=== PATIENT | female | born 1960 | race Caucasian/White ===

== ENCOUNTER → 2016-11-11 | Outpatient (CLI) | payer OTHER ==
[~2016-11-11] VITALS: Ht 172.7 cm; Wt 75.5 kg
[~2016-11-11] MED LIST: CHLORHEXIDINE GLUCONATE 2 % 1 PACK (2 CLOTHS) TOPICAL SCH; CLAR10CA3 PO; CURCPOW PO; INSULIN HUMAN REGULAR 1,000 UNITS/10 ML VIAL SQ PRN; LACTATED RINGER'S 1000 ML IV SCH; LEXA20TA PO; MAGN200T PO; METOPROLOL TARTRATE 25 MG TAB PO PRN; MULT1CHW70 PO; OMEP20CA2 PO; POVIDONE IODINE 5% (ANTISEPSIS KIT) 4 APPLICATIONS EACH NARE SCH; PROPOFOL 200 MG/20 ML AMP IV ONE; PROT40TA PO; SODIUM CHLORID 0.9% 500 ML IV SCH
[2016-11-11 10:00] VITALS: BP 115/69; PULSE 58; RESP 18; TEMP 98.5; O2SAT 98
[2016-11-11 12:04] VITALS: TEMP 98.2
[2016-11-11 12:25] VITALS: BP 115/66; PULSE 59; RESP 16; O2SAT 95
--- NOTE | 2016-11-11 19:53 | EKG ---
Date Performed: 11/11/2016 Time Performed: 09:37:20 PTAGE: 55 years EKG: SINUS BRADYCARDIA BORDERLINE ECG PREVIOUS TRACING : 03/01/2013 15.15 Compared to prior tracing no significant change DOCTOR: Yulissa Ramírez Interpretating Date/Time 11/11/2016 19:52:32
== END ==
LOC: HEND 09:11
DX: K20.9 Esophagitis, unspecified (principal); Z12.11 Encounter for screening for malignant neoplasm of colon; Q27.33 Arteriovenous malformation of digestive system vessel
CPT/HCPCS: 88305; 93005; J7120

== ENCOUNTER 2017-08-01 12:44 | Emergency (ER) | payer OTHER ==
[~2017-08-01] VITALS: Ht 172.7 cm; Wt 74.8 kg
[~2017-08-01 12:44] MED LIST changes: -CHLORHEXIDINE GLUCONATE 2 % 1 PACK (2 CLOTHS) TOPICAL SCH; -INSULIN HUMAN REGULAR 1,000 UNITS/10 ML VIAL SQ PRN; -LACTATED RINGER'S 1000 ML IV SCH; -METOPROLOL TARTRATE 25 MG TAB PO PRN; -POVIDONE IODINE 5% (ANTISEPSIS KIT) 4 APPLICATIONS EACH NARE SCH; -PROPOFOL 200 MG/20 ML AMP IV ONE; -PROT40TA PO; -SODIUM CHLORID 0.9% 500 ML IV SCH
[2017-08-01 12:51] VITALS: BP 114/59; PULSE 85; RESP 16; TEMP 97.5; O2SAT 99
--- NOTE | 2017-08-01 13:57 | PD ---
HPI Chief Complaint: Chest Pain Time Seen by Provider: 13:31 Travel History International Travel<30 days: No Contact w/Intl Traveler<30days: No Traveled to known affect area: No History of Present Illness HPI The patient is a 56-year-old female who presents to the emergency department for chest pain. The patient states she developed chest pain yesterday while she was sleeping. The chest pain woke her up, was right sided, radiated to the right shoulder and right arm as well as the right jaw. The pain was described as dull and achy and self resolved after several hours. The patient then developed chest pain earlier today which was substernal and radiated to the left shoulder. She denied any nausea or vomiting. Denies any company shortness of breath or diaphoresis. She once again described the pain as dull and achy. The patient did have a foul taste in her mouth at one time, she brushed her teeth to try to rid the taste. 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 She denies any history of hypertension, hyperlipidemia, coronary artery disease, diabetes, tobacco use, or known early family history of CAD. The patient has never had a stress test in the past. She denies any exertional components to her chest pain. PFSH Past Medical History Blood Disorders: No Anxiety: Yes Cancer: No Cardiovascular Problems: Yes (IRREGULAR HEART RATE) Diabetes: No Diminished Hearing: No Endocrine: No Gastrointestinal Disorders: Yes (LOPEZ'S ESOPHAGUS) Glaucoma: No Genitourinary: No Headaches: Yes Hepatitis: No Hiatal Hernia: No Hypertension: No Immune Disorder: No Musculoskeletal: Yes Neurologic: Yes Psychiatric: Yes Reproductive: Yes ( HYSTERECTOMY) Respiratory: No Immunizations Current: Yes Migraines: Yes Thyroid Disease: No ?: Not Dilation and Curettage (D&C): Yes Past Surgical History Abdominal Surgery: Yes (ABDOMENOPLASTY ) AICD: No Body Medical Devices: CERVICAL HARDWARE Cardiac Surgery: No Ear Surgery: No Endocrine Surgery: No Eye Surgery: No Genitourinary Surgery: No Gynecologic Surgery: Yes (D&C 20 YEARS AGO ; HYSTERECTOMY) Hysterectomy: Yes (COMPLETE 2006) Joint Replacement: No Neurologic Surgery: Yes (LUMBAR LAMINECTOMY 1999; ANTERIOR CERVICAL FUSION X 2 ) Oral Surgery: No Pacemaker: No Thoracic Surgery: No Other Surgery: Yes (ANTERIOR CERVICAL FUSION X 2) Social History Alcohol Use: No Tobacco Use: No Substance Use: No Allergies-Medications (Allergen,Severity, Reaction): Coded Allergies: codeine (Unverified Allergy, Severe, Nausea/Vomiting, 08/01/17) hydrocodone (Unverified Allergy, Severe, Nausea/Vomiting, 08/01/17) morphine (Unverified Allergy, Severe, NAUSEA AND VOMITING, 08/01/17) Reported Meds & Prescriptions Reported Meds & Active Scripts Active Reported Fish Oil + D3 (Fish Oil-Cholecalciferol) 1,200-1,000 Mg-Unit Cap 2 Cap PO DAILY Multiple Vitamin 1 Tab 1 Tab PO DAILY Curcumin (Turmeric (Curcuma Longa) (Bulk) 1 Pow Pow 500 Mg PO DAILY Magnesium 200 Mg Tab 500 Mg PO DAILY Claritin (Loratadine) 10 Mg Cap 10 Mg PO DAILY Lexapro (Escitalopram Oxalate) 20 Mg Tab 20 Mg PO DAILY Omeprazole 20 Mg Cap 20 Mg PO DAILY Review of Systems Except as stated in HPI: all other systems reviewed are Neg General / Constitutional: No: Fever HENT: No: Lightheadedness Cardiovascular: Positive: Chest Pain or Discomfort, No: Diaphoresis, Dyspnea on exertion Respiratory: No: Shortness of Breath Gastrointestinal: Positive: Other (history of Lopez's esophagitis), No: Nausea, Vomiting, Abdominal Pain Musculoskeletal: No: Edema Neurologic: No: Dizziness Physical Exam Narrative GENERAL: Awake, alert, pleasant 56-year-old female who appears her stated age and is in no acute respiratory distress. SKIN: Focused skin assessment warm/dry. HEAD: Atraumatic. Normocephalic. EYES: Pupils equal and round. No scleral icterus. No injection or drainage. ENT: No nasal bleeding or discharge. Mucous membranes pink and moist. NECK: Trachea midline. No JVD. CARDIOVASCULAR: Regular rate and rhythm. No murmur appreciated. RESPIRATORY: No accessory muscle use. Clear to auscultation. Breath sounds equal bilaterally. GASTROINTESTINAL: Abdomen soft, non-tender, nondistended. No rebound tenderness. MUSCULOSKELETAL: No obvious deformities. No clubbing. No cyanosis. No edema. NEUROLOGICAL: Awake and alert. No obvious cranial nerve deficits. Motor grossly within normal limits. Normal speech. PSYCHIATRIC: Appropriate mood and affect; insight and judgment normal. Data Data Last Documented VS Vital Signs Date Time Temp Pulse Resp B/P (MAP) Pulse Ox O2 Delivery O2 Flow Rate FiO2 08/01/17 14:42 69 16 119/61 (80) 98 08/01/17 12:51 97.5 Orders Orders Electrocardiogram (08/01/17 13:50) Ckmb (Isoenzyme) Profile (08/01/17 13:50) Complete Blood Count With Diff (08/01/17 13:50) Comprehensive Metabolic Panel (08/01/17 13:50) Magnesium (Mg) (08/01/17 13:50) Prothrombin Time / Inr (Pt) (08/01/17 13:50) Act Partial Throm Time (Ptt) (08/01/17 13:50) Troponin I (08/01/17 13:50) Chest, Single Ap (08/01/17 13:50) Ecg Monitoring (08/01/17 13:50) Bilateral Bp Monitoring (08/01/17 13:50) Iv Access Insert/Monitor (08/01/17 13:50) Oximetry (08/01/17 13:50) Oxygen Administration (08/01/17 13:50) Aspirin Chew (Aspirin Chew) (08/01/17 14:00) Sodium Chloride 0.9% Flush (Ns Flush) (08/01/17 14:00) Nitroglycerin Sl (Nitrostat Sl) (08/01/17 14:00) Sodium Chlorid 0.9% 500 Ml Inj (Ns 500 M (08/01/17 14:00) Troponin I (08/01/17 16:55) Labs Laboratory Tests Test 08/01/17 13:55 08/01/17 16:48 White Blood Count 6.6 TH/MM3 Red Blood Count 4.58 MIL/MM3 Hemoglobin 13.1 GM/DL Hematocrit 39.0 % Mean Corpuscular Volume 85.1 FL Mean Corpuscular Hemoglobin 28.6 PG Mean Corpuscular Hemoglobin Concent 33.6 % Red Cell Distribution Width 11.9 % Platelet Count 329 TH/MM3 Mean Platelet Volume 6.7 FL Neutrophils (%) (Auto) 64.1 % Lymphocytes (%) (Auto) 26.6 % Monocytes (%) (Auto) 6.6 % Eosinophils (%) (Auto) 2.3 % Basophils (%) (Auto) 0.4 % Neutrophils # (Auto) 4.2 TH/MM3 Lymphocytes # (Auto) 1.8 TH/MM3 Monocytes # (Auto) 0.4 TH/MM3 Eosinophils # (Auto) 0.2 TH/MM3 Basophils # (Auto) 0.0 TH/MM3 CBC Comment DIFF FINAL Differential Comment Prothrombin Time 9.6 SEC Prothromb Time International Ratio 0.9 RATIO Activated Partial Thromboplast Time 25.2 SEC Blood Urea Nitrogen 14 MG/DL Creatinine 0.73 MG/DL Random Glucose 87 MG/DL Total Protein 7.3 GM/DL Albumin 4.1 GM/DL Calcium Level 8.7 MG/DL Magnesium Level 2.4 MG/DL Alkaline Phosphatase 42 U/L Aspartate Amino Transf (AST/SGOT) 18 U/L Alanine Aminotransferase (ALT/SGPT) 47 U/L Total Bilirubin 0.3 MG/DL Sodium Level 140 MEQ/L Potassium Level 3.9 MEQ/L Chloride Level 104 MEQ/L Carbon Dioxide Level 29.2 MEQ/L Anion Gap 7 MEQ/L Estimat Glomerular Filtration Rate 83 ML/MIN Total Creatine Kinase 76 U/L Troponin I LESS THAN 0.02 NG/ML LESS THAN 0.02 NG/ML MDM Medical Decision Making Medical Screen Exam Complete: Yes Emergency Medical Condition: Yes Medical Record Reviewed: Yes Interpretation(s) EKG reveals normal sinus rhythm with a rate of 68. Nonspecific T wave changes. Last Impressions Chest X-Ray 08/01/17 1350 Signed Impressions: Service Date/Time: Wednesday, August 01, 2017 14:00 - CONCLUSION: Normal examination. Amaury Olvera MD Laboratory Tests Test 08/01/17 13:55 White Blood Count 6.6 TH/MM3 Red Blood Count 4.58 MIL/MM3 Hemoglobin 13.1 GM/DL Hematocrit 39.0 % Mean Corpuscular Volume 85.1 FL Mean Corpuscular Hemoglobin 28.6 PG Mean Corpuscular Hemoglobin Concent 33.6 % Red Cell Distribution Width 11.9 % Platelet Count 329 TH/MM3 Mean Platelet Volume 6.7 FL Neutrophils (%) (Auto) 64.1 % Lymphocytes (%) (Auto) 26.6 % Monocytes (%) (Auto) 6.6 % Eosinophils (%) (Auto) 2.3 % Basophils (%) (Auto) 0.4 % Neutrophils # (Auto) 4.2 TH/MM3 Lymphocytes # (Auto) 1.8 TH/MM3 Monocytes # (Auto) 0.4 TH/MM3 Eosinophils # (Auto) 0.2 TH/MM3 Basophils # (Auto) 0.0 TH/MM3 CBC Comment DIFF FINAL Differential Comment Prothrombin Time 9.6 SEC Prothromb Time International Ratio 0.9 RATIO Activated Partial Thromboplast Time 25.2 SEC Blood Urea Nitrogen 14 MG/DL Creatinine 0.73 MG/DL Random Glucose 87 MG/DL Total Protein 7.3 GM/DL Albumin 4.1 GM/DL Calcium Level 8.7 MG/DL Magnesium Level 2.4 MG/DL Alkaline Phosphatase 42 U/L Aspartate Amino Transf (AST/SGOT) 18 U/L Alanine Aminotransferase (ALT/SGPT) 47 U/L Total Bilirubin 0.3 MG/DL Sodium Level 140 MEQ/L Potassium Level 3.9 MEQ/L Chloride Level 104 MEQ/L Carbon Dioxide Level 29.2 MEQ/L Anion Gap 7 MEQ/L Estimat Glomerular Filtration Rate 83 ML/MIN Total Creatine Kinase 76 U/L Troponin I LESS THAN 0.02 NG/ML Second troponin is less than 0.02 Differential Diagnosis Differential diagnosis includes ACS, STEMI, GERD, esophageal spasm, esophagitis , musculoskeletal pain, pleural effusion, pneumonia. Narrative Course IV was established, labs are drawn and sent, and the patient was placed on cardiac telemetry monitoring and continuous pulse oximetry monitoring. EKG was ordered and interpreted. Chest x-ray was obtained. The patient was administered aspirin and nitroglycerin. Pain chest x-rays unremarkable. Initial troponin was less than 0.02. I do discussion with the patient regarding 23 hour observation to the chest pain Center versus outpatient follow- up with her primary physician for outpatient stress test. The patient would prefer to have an outpatient stress test. Therefore, second troponin was ordered. The second troponin is less than 0.02. The patient is advised to take a baby aspirin daily and follow-up with her primary physician, Dr. Guerra , for referral to cardiology for stress test. The patient agrees and understands. Diagnosis Primary Impression: Chest pain Qualified Codes: R07.9 - Chest pain, unspecified Patient Instructions: General Instructions Additional Instructions: Take a baby aspirin daily. Please provide the patient a copy of her EKG, chest x-ray results, and lab results at discharge. Follow-up with Dr. Guerra for referral to cardiology for an outpatient stress test. Return if symptoms worsen or progress. Med/Other Pt SpecificInfo: Other (take a baby aspirin daily.) Disposition: 01 DISCHARGE HOME Condition: Stable Cody Saldana MD Aug 01, 2017 13:57
[2017-08-01] MEDS ORDERED: NITROGLYCERIN 0.4 MG SL 25 TABS/BTL SL ONE (14:00)
[2017-08-01] MEDS ORDERED: ASPIRIN 81 MG CHEW TAB PO ONE (14:00)
[2017-08-01] MEDS ORDERED: SODIUM CHLORIDE 0.9% FLUSH 10 ML FLUSH IVF PRN (14:00)
[2017-08-01] MEDS ORDERED: SODIUM CHLORID 0.9% 500 ML INJ 500 ML IV ONE (14:00)
[2017-08-01] MEDS ORDERED: FISHCAP4 PO (14:07)
[2017-08-01] MEDS ORDERED: MULTTAB67 PO (14:07)
[2017-08-01 14:08] LABS: AUTOMATED NEUTROPHIL # 4.2 TH/MM3 (1.8-7.7); BASOPHIL % 0.4 % (0.0-2.0); EOSINOPHIL # 0.2 TH/MM3 (0-0.4); EOSINOPHIL % 2.3 % (0.0-4.0); HEMOGLOBIN 13.1 GM/DL (11.6-15.3); LYMPH % 26.6 % (9.0-44.0); LYMPHOCYTE # 1.8 TH/MM3 (1.0-4.8); MEAN CELL VOLUME 85.1 FL (80.0-100.0); MEAN CORPUSCULAR HEMOGLOBIN 28.6 PG (27.0-34.0); MEAN CORPUSCULAR HGB CONC 33.6 % (32.0-36.0); MEAN PLATELET VOLUME 6.7 FL (7.0-11.0); MONO % 6.6 % (0.0-8.0); MONOCYTE # 0.4 TH/MM3 (0-0.9); NEUT % 64.1 % (16.0-70.0); PLATELET COUNT 329 TH/MM3 (150-450); RED BLOOD COUNT 4.58 MIL/MM3 (4.00-5.30); RED CELL DISTRIBUTION WIDTH 11.9 % (11.6-17.2); WHITE BLOOD COUNT 6.6 TH/MM3 (4.0-11.0)
--- NOTE | 2017-08-01 14:12 | RADRPT ---
EXAM DATE/TIME: 08/01/2017 14:00 [facility] COMPARISON: No previous studies available for comparison. INDICATIONS : Chest pain for 2 days MEDICAL HISTORY : None. SURGICAL HISTORY : spinal ENCOUNTER: Initial ACUITY: 2 days PAIN SCORE: 3/10 LOCATION: Bilateral chest FINDINGS: A single view of the chest demonstrates the lungs to be symmetrically aerated without evidence of mas s, infiltrate or effusion. The cardiomediastinal contours are unremarkable. Osseous structures are intact. CONCLUSION: Normal examination. Amaury Olvera MD on August 01, 2017 at 14:10 Board Certified Radiologist. This report was verified electronically.
[2017-08-01 14:18] LABS: CHLORIDE 104 MEQ/L (98-107); SODIUM (NA) 140 MEQ/L (136-145)
[2017-08-01 14:22] LABS: ALBUMIN 4.1 GM/DL (3.4-5.0); BICARBONATE 29.2 MEQ/L (21.0-32.0); BLOOD UREA NITROGEN 14 MG/DL (7-18); CALCIUM 8.7 MG/DL (8.5-10.1); GLUCOSE,RANDOM 87 MG/DL (74-106); MAGNESIUM 2.4 MG/DL (1.5-2.5)
[2017-08-01 14:25] LABS: ALT (GPT) 47 U/L (10-53); AST (GOT) 18 U/L (15-37); CREATININE 0.73 MG/DL (0.50-1.00); GLOMERULAR FILTRATION RATE 83 ML/MIN (>89); INTERNATIONAL NORMALIZED RATIO 0.9 RATIO; PROTHROMBIN TIME - PATIENT 9.6 SEC (9.8-11.6)
[2017-08-01 14:27] LABS: TOTAL BILIRUBIN ADULT 0.3 MG/DL (0.2-1.0); TOTAL PROTEIN 7.3 GM/DL (6.4-8.2)
[2017-08-01 14:28] LABS: ALKALINE PHOSPHATASE 42 U/L (45-117)
[2017-08-01 14:30] LABS: TROPONIN I LESS THAN 0.02 NG/ML (0.02-0.05)
[2017-08-01 14:40] VITALS: BP 98/62; PULSE 93; RESP 16; O2SAT 95
[2017-08-01 14:42] VITALS: BP 119/61; PULSE 69; RESP 16; O2SAT 98
[2017-08-01 17:39] VITALS: BP 124/68; PULSE 71; RESP 16; O2SAT 99
--- NOTE | 2017-08-02 17:12 | EKG ---
Date Performed: 08/01/2017 Time Performed: 12:56:22 PTAGE: 56 years EKG: Sinus rhythm NONSPECIFIC T-WAVE ABNORMALITY Since previous tracing, no significant change noted BORDERLINE ECG PREVIOUS TRACING : 11/11/2016 09.37 DOCTOR: Mary Bean Interpretating Date/Time 08/02/2017 17:10:22
== END 2017-08-01 17:40 | disposition home or self-care (01) ==
LOC: PHED 12:44
DX: R07.9 Chest pain, unspecified (principal); F41.9 Anxiety disorder, unspecified; K22.70 Barrett's esophagus without dysplasia
CPT/HCPCS: 71010; 80053; 82550; 83735; 84484; 85025; 85610; 85730; 93005; 96360; 99285; J7040

== ENCOUNTER → 2017-08-23 | Outpatient (CLI) | payer OTHER ==
[~2017-08-23] MED LIST changes: +FISHCAP4 PO; -MULT1CHW70 PO; +MULTTAB67 PO
[2017-08-23 13:17] LABS: CHOLESTEROL/ HDL RATIO 2.11 RATIO; FREE T4 1.06 NG/DL (0.76-1.46); HDL CHOLESTEROL 86.5 MG/DL (40.0-60.0)
== END ==
LOC: PLAB 09:54
PROVIDERS: ATTEND Internal Medicine Interventional Cardiology
DX: R07.9 Chest pain, unspecified (principal); R00.2 Palpitations
CPT/HCPCS: 36415; 80061; 84439; 84443